=== PATIENT | male | born 1970 | race Caucasian/White ===

== ENCOUNTER 2019-04-24 11:47 | Emergency (ER) | payer OTHER, SELFPAY ==
[2019-04-24 12:02] VITALS: BP 136/82; PULSE 92; RESP 16; TEMP 37.3; O2SAT 94
--- NOTE | 2019-04-24 12:21 | DI.RAD.S_ITS ---
PROCEDURE: XR FOOT LT MIN 3V INDICATIONS: foot pain TECHNIQUE: 3 views of the foot were acquired. COMPARISON: SNO Outside Film, RG, FOOT COMP MIN 3VW (LT), 09/29/2018, 16:07. FINDINGS: Bones: No fractures or dislocations. No suspicious bony lesions. Mild degenerative changes involving the 1st metatarsophalangeal joint are noted without hallux valgus. Os peroneum and os tibiale externum is present. There is a plantar calcaneal spur. Soft tissues: No tibiotalar joint effusion. Achilles tendon appears normal. IMPRESSION: Mild degenerative changes of the left foot. No fractures. Dictated by: Jay Ríos M.D. on 04/24/2019 at 11:41 Approved by: Jay Ríos M.D. on 04/24/2019 at 11:43
--- NOTE | 2019-04-24 12:41 | ED_ITS ---
HPI - Extremity Injury (Lower) <AALIYAH Pittman - Last Filed: 04/24/19 14:42> General Chief Complaint: Extremity Injury, Lower Stated Complaint: Can't walk on left foot Time Seen by Provider: 04/24/19 12:06 Source: patient and family Mode of arrival: Ambulatory Limitations: no limitations History of Present Illness HPI Narrative: The patient is a 48-year-old male nonsmoker presents with his daughter for chief complaint of left foot pain. He states this started hurting yesterday in the arch of his foot. He states he walks around a lot. He states he has had something similar, was placed in foot beds by a plug making operator and eventually got better. He has not taken anything for the pain. He states he is on pain medication for another injury. He states that his foot pain is worse in the morning. He denies any fevers nausea vomiting or diarrhea. Denies any known injuries to the foot. Related Data Previous Rx's Medication Instructions Recorded ketorolac 10 mg PO TID PRN #14 tab 04/24/19 Allergies Allergy/AdvReac Type Severity Reaction Status Date / Time No Known Drug Allergies Allergy Verified 04/24/19 13:21 Review of Systems <LINDA Pittman - Last Filed: 04/24/19 14:42> Review of Systems Narrative: GENERAL: Denies chills, fatigue, malaise, fever, sweats. HEENT: Denies sinus pain, ear pain, sore throat, difficulty swallowing, dizziness. RESPIRATORY: Denies dyspnea, cough, wheezing, hemoptysis, sputum. CARDIOVASCULAR: Denies chest pain, palpitations, orthopnea, edema, GASTROINTESTINAL: Denies nausea, vomiting, abdominal pain, diarrhea, constipation, melena. : Denies dysuria, frequency, incontinence, hematuria, urinary retention. MUSCULOSKELETAL: See HPI SKIN: Denies rash, skin lesions, or other NEUROLOGIC: Denies weakness, headache, numbness, change in speech, confusion, seizures, incoordination. PSYCHIATRIC: No concerning psychosocial issues. 12 point review of systems is negative except for those stated above Patient History <AALIYAH Pittman - Last Filed: 04/24/19 14:42> Substance Use Type: does not use Exam <LINDA Pittman - Last Filed: 04/24/19 14:42> Narrative Exam Narrative: GENERAL: This is a well-nourished, well-developed patient, in no acute distress HEAD: Atraumatic. Normocephalic. No temporal or scalp tenderness. EYES: Pupils equal round and reactive. Extraocular motions intact. No scleral i cterus. No injection or drainage. ENT: Nose without bleeding, purulent drainage or septal hematoma. Throat without erythema, tonsillar hypertrophy or exudate. Uvula midline. Airway patent. NECK: Trachea midline. No JVD or lymphadenopathy. Supple, nontender, no meningeal signs. CARDIOVASCULAR: Regular rate and rhythm without murmurs, gallops, or rubs. RESPIRATORY: No cough. No increased respiratory effort. No accessory muscle use. EXTREMITIES: Pain to palpation left foot of arch, CT positive pedal pulses left foot. Capillary refill less than 2 seconds all toes left foot. BACK: Nontender without deformity or crepitance. No flank tenderness. NEURO: AOx3. SKIN: No rash or erythema or ecchymosis on visible skin Initial Vital Signs Initial Vital Signs: Vital Signs Temperature 99.1 F 04/24/19 12:02 Pulse Rate 92 H 04/24/19 12:02 Respiratory Rate 16 04/24/19 12:02 Blood Pressure 136/82 04/24/19 12:02 Pulse Oximetry 94 04/24/19 12:02 <Lyndsey Valentin DO - Last Filed: 04/24/19 15:42> Initial Vital Signs Initial Vital Signs: Vital Signs Temperature 99.1 F 04/24/19 12:02 Pulse Rate 92 H 04/24/19 12:02 Respiratory Rate 16 04/24/19 12:02 Blood Pressure 136/82 04/24/19 12:02 Pulse Oximetry 94 04/24/19 12:02 Course <POLA Pittman-BC - Last Filed: 04/24/19 14:42> Orders Ordered: ED Orders 04/24/19 12:21 XR foot LT min 3V Stat Discontinued Medications Ketorolac Tromethamine (Toradol) 60 mg IM NOW ONE Stop: 04/24/19 12:22 Last Admin: 04/24/19 13:20 Dose: 60 mg Documented by: NEGIN Vital Signs Vital signs: Vital Signs - 8 hr 04/24/19 12:02 04/24/19 13:58 Temperature 99.1 F Pulse Rate 92 H 80 Respiratory Rate 16 16 Blood Pressure 136/82 Blood Pressure [Left Arm] 121/75 Pulse Oximetry 94 94 <Lyndsey Valentin DO - Last Filed: 04/24/19 15:42> Orders Ordered: ED Orders 04/24/19 12:21 XR foot LT min 3V Stat Discontinued Medications Ketorolac Tromethamine (Toradol) 60 mg IM NOW ONE Stop: 04/24/19 12:22 Last Admin: 04/24/19 13:20 Dose: 60 mg Documented by: CHAITANYASENJose David Vital Signs Vital signs: Vital Signs - 8 hr 04/24/19 12:02 04/24/19 13:58 Temperature 99.1 F Pulse Rate 92 H 80 Respiratory Rate 16 16 Blood Pressure 136/82 Blood Pressure [Left Arm] 121/75 Pulse Oximetry 94 94 MDM - Extremity Injury (Lower) <AALIYAH Pittman - Last Filed: 04/24/19 14:42> Imaging Data Foot x-ray: Radiologist's impression: [place] [address] XRay Report Signed Patient: Shay [facility]#: [id number] : 1970Acct:[id number] Age/Sex: 48 / MDate of Service: 04/24/19 Loc: ED Accession Number: [id number] Procedure: XR foot LT min 3V Ordering Provider: Lyndsey Anglin PROCEDURE: XR FOOT LT MIN 3V INDICATIONS: foot pain TECHNIQUE: 3 views of the foot were acquired. COMPARISON: SNO Outside Film, RG, FOOT COMP MIN 3VW (LT), 09/29/2018, 16:07. FINDINGS: Bones: No fractures or dislocations. No suspicious bony lesions. Mild degenerative changes involving the 1st metatarsophalangeal joint are noted without hallux valgus. Os peroneum and os tibiale externum is present. There is a plantar calcaneal spur. Soft tissues: No tibiotalar joint effusion. Achilles tendon appears normal. IMPRESSION: Mild degenerative changes of the left foot. No fractures. Dictated by: Jay Ríos M.D. on 04/24/2019 at 11:41 Approved by: Jay Ríos M.D. on 04/24/2019 at 11:43 MDM Narrative Medical decision making narrative: The patient is a 48-year-old male who presents with 2 days of foot pain. His exam correlates with plantar fasciitis, but patient and family were concerned about stress fracture so I did obtain an x-ray. This came back negative. The patient has no erythema or signs of infection or gout on his exam. He did not take anything for pain today, so he did receive a dose of Toradol in the emergency department. I discussed at length the importance of ice, gentle stretching etc for plantar fasciitis. He responded well in the emergency department to Toradol, so I gave him a prescription their obstruction instructions to not combine it with any Aleve Motrin etc. Encourage PCP follow-up. Discussed at length return precautions popped care. Patient has no questions or concerns upon discharge and states understanding of return precautions and follow-up care. Discharge Plan Departure Patient Disposition: Home Clinical Impression: Plantar fasciitis of left foot Acute foot pain Qualifiers: Laterality: left Qualified Code(s): M79.672 - Pain in left foot Discharge Date/Time: 04/24/19 14:04 Instructions: DI for Plantar Fasciitis, DI for Foot Pain Activity Restrictions/Additional Instructions: Your exam correlates with plantar fasciitis. Please follow up with primary care provider. As I discussed, your x-ray shows no acute fracture. This does not rule out a soft tissue injury such as a ligament or tendon injury. It is important that you follow up with primary care provider, especially if worsening or no improvement. There can be fractures that did not show up on initial x-ray. I have given you a prescription of Toradol. This is an NSAID. Do not combine it with other NSAIDs such as Aleve or ibuprofen. I suggest taking it with some food, as it can irritate your stomach. I sent the prescription of Toradol to [facility] in [place]. If you have any acute concerns such as chest pain, shortness of breath etc ple ase feel free to come back to emergency department Prescriptions: New ketorolac 10 mg tablet 10 mg PO TID PRN (Reason: pain) Qty: 14 RF: 0 Referrals: Wallace Warner [Primary Care Provider] -
[2019-04-24] MEDS: KETOROLAC 60 MG/2 ML VIAL IM (13:20)
--- NOTE | 2019-04-24 13:53 | PC.NURSE ---
understanding instructions. states, has incentive spirometer at home.
[2019-04-24 13:58] VITALS: BP 121/75; PULSE 80; RESP 16; O2SAT 94
== END 2019-04-24 14:04 | disposition home or self-care (01) ==
PROVIDERS: Emergency Provider Nurse Practitioner Family; PCP Family Medicine
DX: M72.2 Plantar fascial fibromatosis (principal); M79.672 Pain in left foot
CPT/HCPCS: 73630; 96372; 99282; 99283; J1885

== ENCOUNTER 2022-12-22 20:14 | Emergency (ER) | payer OTHER, SELFPAY ==
[2022-12-22] VITALS (24 sets, daily range): BP systolic 154–227; BP diastolic 91–126; PULSE 65–82; RESP 18; TEMP 36.2; O2SAT 95–99; BMI 31.1
--- NOTE | 2022-12-22 20:34 | DI.RAD.S_ITS ---
PROCEDURE: XR CHEST 1V INDICATIONS: chest pain TECHNIQUE: One view of the chest was acquired. COMPARISON: None. FINDINGS: Surgical changes and devices: None. Lungs and pleura: There are low lung volumes. Lungs are clear. No pleural effusions or pneumothorax. Mediastinum: Mediastinal contours appear normal. Heart size is normal. Bones and chest wall: No suspicious bony lesions. Overlying soft tissues appear unremarkable. IMPRESSION: 1. No acute cardiopulmonary disease. Dictated by: Chava Molina M.D. on 12/22/2022 at 20:50 Approved by: Chava Molina M.D. on 12/22/2022 at 20:50
--- NOTE | 2022-12-22 20:34 | DI.CT.S_ITS ---
PROCEDURE: CT HEAD/BRAIN WO CON INDICATIONS: atypical headache TECHNIQUE: Noncontrast 4.5 mm thick angled axial sections acquired from the foramen magnum to the vertex, with coronal and sagittal reformats. For radiation dose reduction, the following was used: automated exposure control, adjustment of mA and/or kV according to patient size. COMPARISON: None. FINDINGS: Image quality: Excellent. CSF spaces: Basal cisterns are patent. No extra-axial fluid collections. Ventricles are normal in size and shape. Brain: No intracranial hemorrhage, mass, or mass effect. Lebron-white matter interface appears preserved. Skull and face: Calvarium and visualized facial bones are intact, without suspicious lesions. Sinuses: Visualized sinuses and mastoids are clear. IMPRESSION: 1. No acute intracranial abnormality. Dictated by: Chava Molina M.D. on 12/22/2022 at 20:49 Approved by: Chava Molina M.D. on 12/22/2022 at 20:49
[2022-12-22] MEDS: KETOROLAC 30 MG/ML VIAL 15 MG IV (20:55)
[2022-12-22] MEDS: diphenhydrAMINE 50 MG/ML VIAL 25 MG IV (20:55)
[2022-12-22] MEDS: METOCLOPRAMIDE 10 MG/2 ML INJ IV (20:55)
[2022-12-22] MEDS: SODIUM CHLORIDE 0.9% 1,000 ML 1000 ML IV (20:56)
[2022-12-22 21:05] LABS: Add Manual Diff / Slide Review NO; Basophils Absolute Auto 0 /uL (0-100); Basophils Percent Auto 0.3 % (0-2); Eosinophils Absolute Auto 300 /uL (0-450); Eosinophils Percent Auto 2.9 % (2-4); Hematocrit 44.9 % (41-53); Hemoglobin 15.6 g/dL (13.5-17.5); Lymphocytes Absolute Auto 1700 /uL (1100-4500); Lymphocytes Percent Auto 16.5 % (25-40); Mean Corpuscular HGB Conc 34.6 % (30-36); Mean Corpuscular Volume 86.7 fL (80-100); Monocytes Absolute Auto 600 /uL (0-900); Monocytes Percent Auto 5.8 % (3-14); Neutrophils Absolute Auto 7600 /uL (1500-7000); Neutrophils Percent Auto 74.5 % (50-75); Platelet Count 229 X10^3/uL (150-400); Red Blood Cell Count 5.19 X10^6/uL (4.5-5.9); Red Cell Distribution Width 12.7 % (11.6-14.8); White Blood Cell Count 10.2 X10^3/uL (4.5-11.0)
[2022-12-22 21:16] LABS: Alanine Aminotransferase 33 IU/L (<50); Albumin 4.6 g/dL (3.5-5.0); Albumin Globulin Ratio 1.4 (1.0-2.8); Alkaline Phosphatase 67 U/L (38-126); Aspartate Aminotransferase 27 IU/L (17-59); BUN Creatinine Ratio 19.1 (6-22); Bilirubin Total 0.5 mg/dL (0.2-1.3); Blood Urea Nitrogen 18 mg/dL (9-20); Calcium 9.4 mg/dL (8.4-10.2); Carbon Dioxide 28 mmol/L (22-32); Chloride 99 mmol/L (98-107); Creatine Kinase 89 U/L (55-170); Estimated Glomerular Filt Rate > 60 mL/min (>60); Globulin 3.3 g/dL (1.7-4.1); Glucose 107 mg/dL (70-100); HEMOLYSIS < 15 (0-50); Lipase 63 U/L (23-300); Potassium 3.9 mmol/L (3.4-5.1); Sodium 135 mmol/L (137-145); Total Protein 7.9 g/dL (6.3-8.2)
[2022-12-22 21:28] LABS: Troponin I < 0.012 ng/mL (0.01-0.034)
[2022-12-22] MEDS: LABETALOL 20 MG/4 ML SYRINGE 10 MG IV (21:57)
--- NOTE | 2022-12-22 22:59 | ED_ITS ---
HPI - Headache General Chief Complaint: Headache Stated Complaint: Migraine, High BP Time Seen by Provider: 12/22/22 20:34 Mode of arrival: Ambulatory History of Present Illness HPI Narrative: Patient is a 52-year-old male history of Prinzmetal angina ongoing headaches. He reports that he has had headaches for at least the last 10 weeks he is monitored by a neurologist at [facility] he was started on verapamil 120 mg for the headaches. Today at 11:00 a.m. he started having the worsening headache. Typically has headaches normally on the left side this wrapped around to both sides and then all over his head. He was unable to lay down because the skin was so sensitive. No fever chills or neck pain. No numbness tingling weakness. He took his verapamil this morning as he was supposed to he tried Tylenol ibuprofen drank coffee no relief. Mild nausea no significant vomiting. No other symptoms. He is also noticed as blood pressure is quite elevated. Denies any chest pain or other symptoms. Related Data Previous Rx's Medication Instructions Recorded ketorolac 10 mg tablet 10 mg PO TID PRN pain #14 tabs 04/24/19 ondansetron 4 mg disintegrating 4 mg PO Q8H PRN nausea and 12/23/22 tablet vomiting #10 tabs Allergies Allergy/AdvReac Type Severity Reaction Status Date / Time No Known Drug Allergies Allergy Verified 12/22/22 20:21 Review of Systems Review of Systems ROS Unobtainable: All systems reviewed & are unremarkable except as noted in HPI and below Patient History Social History Smoking Status: Never smoker Smoking Status: Never smoker alcohol intake frequency: holidays/special occasions only Substance Use Type: does not use Exam Initial Vital Signs Initial Vital Signs: Vital Signs Temperature 97.2 F L 12/22/22 20:21 Pulse Rate 65 12/22/22 20:21 Respiratory Rate 18 12/22/22 20:21 Blood Pressure 187/112 H 12/22/22 20:21 Pulse Oximetry 98 12/22/22 20:21 Oxygen Delivery Method Room Air 12/22/22 20:21 GENERAL: Alert 52-year-old male and in no acute distress. HEENT: Head atraumatic,EOMI, pupils reactive, face symmetric, moist mucous membranes CARDIOVASCULAR: Regular rate and rhythm without murmurs, rubs or gallops. RESPIRATORY: Breath sounds equal bilaterally, no wheezes rales or rhonchi. ABDOMEN: Soft, nontender. Normoactive bowel sounds all 4 quadrants. No guardi ng or rebound. EXTREMITIES: Normal range of motion, no clubbing or edema. Neurovascularly intact NEUROLOGICAL: Alert and oriented x4.Normal gait and speech. Cranial nerves II through XII grossly intact. SKIN: Warm, dry, no laceration, no petechiae, no rashes or lesions. Scores NIH Stroke Scale Level of Conciousness: Alert, keenly responsive Ask month/age: Answers both questions correctly. Open/close eyes, close hand: Performs both tasks correctly Best gaze horizontal: Normal Visual gordillo: No visual loss Facial palsy: Normal symetrical movement Left arm drift: No drift for full 10 sec Right arm drift: No drift for full 10 sec Left leg drift: No drift for full 5 sec Right leg drift: No drift for full 5 sec Limb ataxia: Absent Sensory on face/arms/legs: Normal, no sensory loss Best language: No aphasia, normal Dysarthria: Normal Extinction or inattention: No abnormality Total NIH Stroke scale score: 0 Course Orders Ordered: ED Orders 12/22/22 20:34 CT head/brain wo con Stat XR chest 1V Stat EKG-12 Lead Stat 12/22/22 20:51 Complete Blood Count AUTO DIFF Stat Comprehensive Metabolic Panel Stat Lipase Stat Troponin & CK Cardiac Panel Stat Discontinued Medications Diphenhydramine HCl (Diphenhydramine 50 Mg/Ml Vial) 25 mg IV NOW ONE Stop: 12/22/22 20:35 Last Admin: 12/22/22 20:55 Dose: 25 mg Documented By: BENITEZ Sodium Chloride (Normal Saline 0.9%) 1,000 mls @ 1,000 mls/hr IV CONT [place] Last Infusion: 12/22/22 21:52 Dose: 0 mls/hr Documented By: Admin: 12/22/22 20:56 Dose: 1,000 mls/hr Documented By: BENITEZ Ketorolac Tromethamine (Ketorolac 30 Mg/Ml Vial) 15 mg IV NOW ONE Stop: 12/22/22 20:35 Last Admin: 12/22/22 20:55 Dose: 15 mg Documented By: BENITEZ Labetalol HCl (Labetalol 20 Mg/4 Ml Syringe) 10 mg IV NOW ONE Stop: 12/22/22 21:53 Last Admin: 12/22/22 21:57 Dose: 10 mg Documented By: BENITEZ Metoclopramide HCl (Metoclopramide 10 Mg/2 Ml Inj) 10 mg IV NOW ONE Stop: 12/22/22 20:35 Last Admin: 12/22/22 20:55 Dose: 10 mg Documented By: BS Morphine Sulfate (Morphine 4 Mg/Ml Inj) 4 mg IV NOW ONE Stop: 12/22/22 23:12 Last Admin: 12/22/22 23:30 Dose: 4 mg Documented By: BS Vital Signs Vital signs: Vital Signs - 8 hr 12/22/22 21:06 12/22/22 21:06 12/22/22 21:07 Pulse Rate 71 70 Blood Pressure 194/110 H Pulse Oximetry 98 97 12/22/22 21:07 12/22/22 21:15 12/22/22 21:15 Pulse Rate 78 Blood Pressure 192/104 H 195/109 H Pulse Oximetry 96 12/22/22 21:30 12/22/22 21:30 12/22/22 21:39 Pulse Rate 82 80 Blood Pressure 190/106 H Pulse Oximetry 97 97 12/22/22 21:39 12/22/22 21:43 12/22/22 21:43 Pulse Rate 82 Blood Pressure 175/98 H 193/103 H Pulse Oximetry 97 12/22/22 21:45 12/22/22 21:45 12/22/22 21:57 Pulse Rate 81 80 Blood Pressure 181/100 H 181/100 H Pulse Oximetry 98 12/22/22 22:30 12/22/22 22:00 12/22/22 22:00 Pulse Rate 80 81 Blood Pressure 227/126 H 177/95 H Pulse Oximetry 96 12/22/22 22:10 12/22/22 22:10 12/22/22 22:20 Pulse Rate 78 80 Blood Pressure 179/104 H Pulse Oximetry 97 96 12/22/22 22:20 12/22/22 22:29 12/22/22 22:30 Pulse Rate 81 Blood Pressure 177/102 H 227/126 H Pulse Oximetry 97 12/22/22 22:32 12/22/22 22:40 12/22/22 22:40 Pulse Rate 78 70 Blood Pressure 178/103 H Pulse Oximetry 99 95 12/22/22 22:50 12/22/22 22:50 12/22/22 23:00 Pulse Rate 72 Blood Pressure 163/93 H 166/93 H Pulse Oximetry 95 12/22/22 23:00 12/22/22 23:10 12/22/22 23:10 Pulse Rate 74 70 Blood Pressure 189/107 H Pulse Oximetry 95 97 12/22/22 23:20 12/22/22 23:20 12/22/22 23:29 Pulse Rate 71 72 Blood Pressure 167/103 H Pulse Oximetry 97 97 12/22/22 23:29 12/22/22 23:30 12/22/22 23:30 Pulse Rate 69 Blood Pressure 185/111 H 170/107 H Pulse Oximetry 96 12/22/22 23:40 12/22/22 23:40 12/22/22 23:50 Pulse Rate 67 Blood Pressure 158/91 H 154/93 H Pulse Oximetry 95 12/22/22 23:50 12/23/22 00:00 12/23/22 00:00 Pulse Rate 70 67 Blood Pressure 153/92 H Pulse Oximetry 95 95 12/23/22 00:10 12/23/22 00:10 12/23/22 00:20 Pulse Rate 65 71 Blood Pressure 160/96 H Pulse Oximetry 96 96 12/23/22 00:20 12/23/22 00:30 Pulse Rate 68 Blood Pressure 151/95 H Pulse Oximetry 97 MDM - Headache Lab Data 12/22/22 20:51 12/22/22 20:51 Labs: Lab Results 12/22/22 12/22/22 Range/Units 20:51 20:51 WBC 10.2 (4.5-11.0) X10^3/uL RBC 5.19 (4.5-5.9) X10^6/uL Hgb 15.6 (13.5-17.5) g/dL Hct 44.9 (41-53) % MCV 86.7 (80-100) fL MCH 30.0 (26-34) PG MCHC 34.6 (30-36) % RDW 12.7 (11.6-14.8) % Plt Count 229 (150-400) X10^3/uL Neut % (Auto) 74.5 (50-75) % Lymph % (Auto) 16.5 L (25-40) % [place] % (Auto) 5.8 (3-14) % Eos % (Auto) 2.9 (2-4) % Baso % (Auto) 0.3 (0-2) % Neut # (Auto) 7600 H (0002-4175) /uL Lymph # (Auto) 1700 (3056-4540) /uL [place] # (Auto) 600 (0-900) /uL Eos # (Auto) 300 (0-450) /uL Baso # (Auto) 0 (0-100) /uL Sodium 135 L (137-145) mmol/L Potassium 3.9 (3.4-5.1) mmol/L Chloride 99 (98-107) mmol/L Carbon Dioxide 28 (22-32) mmol/L BUN 18 (9-20) mg/dL Creatinine 0.94 (0.66-1.25) mg/dL Estimated GFR > 60 (>60) mL/min BUN/Creatinine Ratio 19.1 (6-22) Glucose 107 H (70-100) mg/dL Calcium 9.4 (8.4-10.2) mg/dL Total Bilirubin 0.5 (0.2-1.3) mg/dL AST 27 (17-59) IU/L ALT 33 (<50) IU/L Alkaline Phosphatase 67 (38-126) U/L Total Creatine Kinase 89 (55-170) U/L Troponin I < 0.012 (0.01-0.034) ng/mL Total Protein 7.9 (6.3-8.2) g/dL Albumin 4.6 (3.5-5.0) g/dL Globulin 3.3 (1.7-4.1) g/dL Albumin/Globulin Ratio 1.4 (1.0-2.8) Lipase 63 (23-300) U/L Imaging Data CT scan - head: Radiologist's Impression: PROCEDURE:? CT HEAD/BRAIN WO CON ? INDICATIONS:? atypical headache ? TECHNIQUE:? Noncontrast 4.5 mm thick angled axial sections acquired from the foramen magnum to the vertex, with coronal and sagittal reformats.? For radiation dose reduction, the following was used:? automated exposure control, adjustment of mA and/or kV according to patient size.? ? COMPARISON:? None. ? FINDINGS:? Image quality:? Excellent.? ? CSF spaces:? Basal cisterns are patent.? No extra-axial fluid collections.? Ventricles are normal in size and shape.? ? Brain:? No intracranial hemorrhage, mass, or mass effect.? Lebron-white matter interface appears preserved.? ? Skull and face:? Calvarium and visualized facial bones are intact, without suspicious lesions.? ? Sinuses:? Visualized sinuses and mastoids are clear.? ? IMPRESSION:? ? 1. No acute intracranial abnormality.? ? ? Dictated by: Chava Molina M.D. on 12/22/2022 at 20:49 ? ? Approved by: Chava Molina M.D. on 12/22/2022 at 20:49 ? Chest x-ray: Radiologist's Impression: PROCEDURE:? XR CHEST 1V ? INDICATIONS:? chest pain ? TECHNIQUE:? One view of the chest was acquired.? ? COMPARISON:? None. ? FINDINGS:? ? Surgical changes and devices:? None.? ? Lungs and pleura:? There are low lung volumes.? Lungs are clear.? No pleural effusions or pneumothorax.? ? Mediastinum:? Mediastinal contours appear normal.? Heart size is normal.? ? Bones and chest wall:? No suspicious bony lesions.? Overlying soft tissues appear unremarkable.? ? IMPRESSION:? ? 1.? No acute cardiopulmonary disease. ? ? ? Dictated by: Chava Molina M.D. on 12/22/2022 at 20:50 ? ? ECG Data Interpretation: Sinus rhythm rate 68 HI interval 152 QRS 82 QTC 442 T-wave inversion noted in lead [address] changes Q-waves noted inferiorly 3 and AVF no priors to compare MDM Narrative Medical decision making narrative: Patient 52-year-old male history headache but got significantly worse today change in headache activity. He has been unable to get this headache under control very sensitive to touch. He is also noted to have quite elevated blood pressure in the ED. He is no sign of end-organ damage. He was given migraine cocktail with very little relief. Blood pressure remained slightly elevate. Given a dose of labetalol which actually did not bring his blood pressure on and finally he is given morphine which seems to have helped. Head CT is negative. He is on verapamil for his migraines which I suspect is for vasospasm. His headache is finally at a manageable level. Encouraged him to check his blood pressure at home follow-up with his primary. He has a neurologist whom he sees for his headaches. At this time no indication for any further workup or admission to hospital. In no focal deficits or signs or symptoms of CVA. NIH stroke scale 0. Discharge Plan Departure Patient Disposition: Home Clinical Impression: Migraine Instructions: DI for Migraine Activity Restrictions/Additional Instructions: *You have been diagnosed with migraine headache *What to do: At this time go home and rest I hope you get some relief. *Continue to take medications as directed Zofran 4 mg every 8 hours if needed for nausea vomiting --> SENT TO [place] *Follow up with your primary care provider in 2-3 days or call [phone] *Return to ER if you should have persistent vomiting worsening headache numbness tingling weakness or any new, worsening or concerning symptoms Prescriptions: New ondansetron 4 mg tablet,disintegrating 4 mg PO Q8H PRN (Reason: nausea and vomiting) Qty: 10 0RF No Action ketorolac 10 mg tablet 10 mg PO TID PRN (Reason: pain) Qty: 14 0RF Referrals: Von Desai DO [Primary Care Provider] - Stand Alone Forms: Patient Portal/API
[2022-12-22] MEDS: MORPHINE 4 MG/ML INJ IV (23:30)
[2022-12-23] VITALS: BP 153/92; PULSE 67; O2SAT 95
[2022-12-23 00:10] VITALS: BP 160/96; PULSE 65; O2SAT 96
[2022-12-23 00:20] VITALS: BP 151/95; PULSE 71; O2SAT 96
[2022-12-23 00:30] VITALS: PULSE 68; O2SAT 97
== END 2022-12-23 00:38 | disposition home or self-care (01) ==
PROVIDERS: Emergency Provider Emergency Medicine; PCP Family Medicine
DX: G43.909 Migraine, unspecified, not intractable, without status migrainosus (principal); R07.9 Chest pain, unspecified; I10 Essential (primary) hypertension
CPT/HCPCS: 36415; 70450; 71045; 80053; 82550; 83690; 84484; 85025; 93005; 93010; 96361; 96374; 96375; 99284; J1200; J1885; J2270; J2765

== ENCOUNTER 2023-05-19 15:46 | Emergency (ER) | payer OTHER, SELFPAY ==
[2023-05-19 15:59] VITALS: BP 161/102; PULSE 79; RESP 16; TEMP 36.2; O2SAT 98; BMI 33.8
--- NOTE | 2023-05-19 16:21 | DI.CT.S_ITS ---
PROCEDURE: CT ANGIO CHEST PE PROTOCOL INDICATIONS: WORSENING DYSPNEA, ON HORMONES TECHNIQUE: After the administration of intravenous contrast, 2 mm thick sections acquired from the pulmonary apices to the posterior costophrenic angles. 3-dimensional maximum intensity projection (MIP) coronal and sagittal reformats were then acquired through the thorax. For radiation dose reduction, the following was used: automated exposure control, adjustment of mA and/or kV according to patient size. COMPARISON: None. FINDINGS: Image quality: Diagnostic. Pulmonary arteries: Pulmonary arteries are normal in size, and demonstrate no intraluminal filling defects to suggest central pulmonary embolism. Lungs and pleura: Lungs are clear. No pleural effusions or pneumothorax. Central and peripheral airways are patent. Mediastinum: Heart size is normal, without pericardial effusion. No mediastinal or hilar adenopathy. Thoracic aorta is normal in caliber and enhancement. Esophagus is normal in caliber, without hiatal hernia. Bones and chest wall: No suspicious bony lesions. Ribs and thoracic spine appear intact throughout. No axillary or supraclavicular adenopathy. No thyroid nodules which require sonographic follow up, per consensus guidelines. Upper Abdomen: Visualized upper abdominal solid organs appear normal in the early arterial phase of enhancement. IMPRESSION: No pulmonary embolus. No acute cardiopulmonary process. Dictated by: Viky Solomon M.D. on 05/19/2023 at 16:51 Approved by: Viky Solomon M.D. on 05/19/2023 at 16:53
--- NOTE | 2023-05-19 16:21 | DI.US.S_ITS ---
PROCEDURE: US PERIPH VENOUS LOW EXTREM BI INDICATIONS: PAIN AND SWELLING TECHNIQUE: Real-time imaging, as well as color and pulse Doppler interrogation, were performed of the deep veins of both legs from the inguinal ligament to the popliteal fossa, with documentation of the visualized calf veins. COMPARISON: None. FINDINGS: Right: The common femoral, femoral, popliteal, and the visualized calf veins are normally compressible, and free of intraluminal thrombus. Color and pulse Doppler demonstrate normal phasic intravascular flow. There is normal augmentation response to distal compression maneuver. Left: The common femoral, femoral, popliteal, and the visualized calf veins are normally compressible, and free of intraluminal thrombus. Color and pulse Doppler demonstrate normal phasic intravascular flow. There is normal augmentation response to distal compression maneuver. IMPRESSION: No findings of deep venous thrombosis in either lower extremity. Dictated by: Pascale Norman M.D. on 05/19/2023 at 17:30 Approved by: Pascale Norman M.D. on 05/19/2023 at 17:32
--- NOTE | 2023-05-19 16:21 | DI.RAD.S_ITS ---
PROCEDURE: XR CHEST 1V INDICATIONS: dyspnea TECHNIQUE: One view of the chest was acquired. COMPARISON: [facility], CR, XR CHEST 1V, 12/22/2022, 20:31. FINDINGS: Surgical changes and devices: None. Lungs and pleura: Lung volumes are low. Lungs are clear. No pleural effusions or pneumothorax. Mediastinum: Mediastinal contours appear normal. Heart size is normal. Bones and chest wall: No suspicious bony lesions. Overlying soft tissues appear unremarkable. IMPRESSION: No acute cardiopulmonary abnormality is seen. Dictated by: Viky Solomon M.D. on 05/19/2023 at 16:51 Approved by: Viky Solomon M.D. on 05/19/2023 at 16:51
[2023-05-19 16:28] VITALS: PULSE 77
[2023-05-19 16:42] LABS: Add Manual Diff / Slide Review NO; Basophils Absolute Auto 100 /uL (0-100); Basophils Percent Auto 0.6 % (0-2); Eosinophils Absolute Auto 200 /uL (0-450); Eosinophils Percent Auto 2.3 % (2-4); Hematocrit 42.7 % (41-53); Lymphocytes Absolute Auto 2300 /uL (1100-4500); Lymphocytes Percent Auto 21.8 % (25-40); Mean Corpuscular Volume 88.3 fL (80-100); Monocytes Absolute Auto 900 /uL (0-900); Monocytes Percent Auto 8.2 % (3-14); Neutrophils Absolute Auto 7100 /uL (1500-7000); Neutrophils Percent Auto 67.1 % (50-75); Platelet Count 252 X10^3/uL (150-400); Red Blood Cell Count 4.83 X10^6/uL (4.5-5.9); Red Cell Distribution Width 12.4 % (11.6-14.8); White Blood Cell Count 10.6 X10^3/uL (4.5-11.0)
--- NOTE | 2023-05-19 16:45 | ED.EXTPRO ---
HPI - Extremity Problem General Chief complaint: Extremity Problem,Nontraumatic Stated complaint: poosible blood clot Time Seen by Provider: 05/19/23 16:13 Source: patient Mode of arrival: Ambulatory History of Present Illness HPI Narrative: 52-year-old male presents for bilateral lower extremity cramping and pain as well as 3 weeks of gradually worsening intermittent shortness of breath. Patient states that 2 months ago he was supposed to receive prednisone injections into his hands for trigger point, however he states that there was a medication error and he was given progesterone injections. Since then he has been followed by his primary care doctor for various reported side effects. He and his recently got home from an extended car ride and when he called his nursing line about his extremity pain he was told to go to the ER for blood clot evaluation. Related Data Previous Rx's Medication Instructions Recorded ketorolac 10 mg tablet 10 mg PO TID PRN pain #14 tabs 04/24/19 ondansetron 4 mg disintegrating 4 mg PO Q8H PRN nausea and 12/23/22 tablet vomiting #10 tabs Allergies Allergy/AdvReac Type Severity Reaction Status Date / Time No Known Drug Allergies Allergy Verified 12/22/22 20:21 Review of Systems Review of Systems Narrative: Negative except as noted above Patient History Social History Smoking Status: Never smoker Smoking Status: Never smoker alcohol intake frequency: holidays/special occasions only Substance Use Type: does not use Exam Initial Vital Signs Initial Vital Signs: Vital Signs Temperature 97.1 F L 05/19/23 15:59 Pulse Rate 79 05/19/23 15:59 Respiratory Rate 16 05/19/23 15:59 Blood Pressure 161/102 H 05/19/23 15:59 Pulse Oximetry 98 05/19/23 15:59 Oxygen Delivery Method Room Air 05/19/23 15:59 Const: Awake, alert, no acute distress, nontoxic appearing Eyes: PERRL, EOMI, conjunctiva normal ENT: Atraumatic, dentition normal, mucous membranes moist Cardiac: regular rate, regular rhythm RESP: unlabored, clear bilaterally, no wheezing GI: Atraumatic, soft, nontender, nondistended, no rebound, no guarding MSK: Atraumatic, full range of motion, pulses equal, bilateral calf tenderness to palpation Skin: Warm, Dry, intact, no rashes Neuro: AO x3, CN II-XII grossly intact, moves all extremities Psych: affect normal, mood normal, not suicidal, not homicidal Course Orders Ordered: ED Orders 05/19/23 16:21 CT angio chest PE protocol Stat Chest [XR chest 1V] Stat US periph venous low extrem bi Stat 05/19/23 16:24 BNP [NT-proBNP (BNP-Adult 18+)] Stat CBC Auto Diff [Complete Blood Count AUTO DIFF] Stat CMP [Comprehensive Metabolic Panel] Stat PT [Prothrombin Time INR] Stat Troponin & CK Cardiac Panel Stat Vital Signs Vital signs: Vital Signs - 8 hr 05/19/23 15:59 05/19/23 16:28 Temperature 97.1 F L Pulse Rate 79 Pulse Rate [Bilateral Dorsalis Pedis] 77 Respiratory Rate 16 Blood Pressure 161/102 H Pulse Oximetry 98 Oxygen Delivery Method Room Air MDM - Extremity (Nontraumatic) Lab Data 05/19/23 16:24 05/19/23 16:24 Labs: Lab Results 05/19/23 Range/Units 16:24 WBC 10.6 (4.5-11.0) X10^3/uL RBC 4.83 (4.5-5.9) X10^6/uL Hgb 15.0 (13.5-17.5) g/dL Hct 42.7 (41-53) % MCV 88.3 (80-100) fL MCH 31.0 (26-34) PG MCHC 35.0 (30-36) % RDW 12.4 (11.6-14.8) % Plt Count 252 (150-400) X10^3/uL Neut % (Auto) 67.1 (50-75) % Lymph % (Auto) 21.8 L (25-40) % [place] % (Auto) 8.2 (3-14) % Eos % (Auto) 2.3 (2-4) % Baso % (Auto) 0.6 (0-2) % Neut # (Auto) 7100 H (8641-3885) /uL Lymph # (Auto) 2300 (7968-8185) /uL [place] # (Auto) 900 (0-900) /uL Eos # (Auto) 200 (0-450) /uL Baso # (Auto) 100 (0-100) /uL PT 11.6 (9.4-12.5) SECONDS INR 1.0 (0.9-1.3) Sodium 135 L (137-145) mmol/L Potassium 3.8 (3.4-5.1) mmol/L Chloride 101 (98-107) mmol/L Carbon Dioxide 23 (22-32) mmol/L BUN 23 H (9-20) mg/dL Creatinine 1.39 H (0.66-1.25) mg/dL Estimated GFR > 60 (>60) mL/min BUN/Creatinine Ratio 16.5 (6-22) Glucose 101 H (70-100) mg/dL Calcium 10.1 (8.4-10.2) mg/dL Total Bilirubin 0.5 (0.2-1.3) mg/dL AST 32 (17-59) IU/L ALT 33 (<50) IU/L Alkaline Phosphatase 56 (38-126) U/L Total Creatine Kinase 100 (55-170) U/L Troponin I < 0.012 (0.01-0.034) ng/mL NT-Pro-B Natriuret Pep 35 (<125) pg/mL Total Protein 8.8 H (6.3-8.2) g/dL Albumin 5.0 (3.5-5.0) g/dL Globulin 3.8 (1.7-4.1) g/dL Albumin/Globulin Ratio 1.3 (1.0-2.8) MDM Narrative Medical decision making narrative: Well-appearing patient with the above complaints. Triage note states unilateral leg pain, however patient endorses that both of his legs are cramping and in pain. Given the reported hormone injection as well as recent long car ride we will order DVT scan and PE scan. Laboratory work is reviewed, unremarkable. CT angio, chest x-ray, bilateral lower extremity ultrasounds are all negative for acute findings or clot burden. Patient and counseled at bedside of all lab and imaging findings. 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 ED return precautions discussed at bedside. Patient expressed understanding of the plan and is in agreement at this time. All questions answered at the time of discharge. Discharge Plan Departure Patient Disposition: Home Clinical Impression: Dyspnea, Bilateral leg pain Instructions: DI for Shortness of Breath, DI for Leg Pain Prescriptions: No Action ketorolac 10 mg tablet 10 mg PO TID PRN (Reason: pain) Qty: 14 0RF ondansetron 4 mg tablet,disintegrating 4 mg PO Q8H PRN (Reason: nausea and vomiting) Qty: 10 0RF Referrals: Von Desai DO [Primary Care Provider] - Stand Alone Forms: Patient Portal/API
[2023-05-19 16:52] LABS: Prothrombin Time 11.6 SECONDS (9.4-12.5)
[2023-05-19 16:57] LABS: Alanine Aminotransferase 33 IU/L (<50); Albumin Globulin Ratio 1.3 (1.0-2.8); Alkaline Phosphatase 56 U/L (38-126); Aspartate Aminotransferase 32 IU/L (17-59); BUN Creatinine Ratio 16.5 (6-22); Bilirubin Total 0.5 mg/dL (0.2-1.3); Blood Urea Nitrogen 23 mg/dL (9-20); Calcium 10.1 mg/dL (8.4-10.2); Carbon Dioxide 23 mmol/L (22-32); Chloride 101 mmol/L (98-107); Creatine Kinase 100 U/L (55-170); Estimated Glomerular Filt Rate > 60 mL/min (>60); Globulin 3.8 g/dL (1.7-4.1); Glucose 101 mg/dL (70-100); HEMOLYSIS 24 (0-50); Potassium 3.8 mmol/L (3.4-5.1); Sodium 135 mmol/L (137-145); Total Protein 8.8 g/dL (6.3-8.2)
[2023-05-19 17:08] LABS: NT-proBNP (BNP-Adult 18+) 35 pg/mL (<125); Troponin I < 0.012 ng/mL (0.01-0.034)
[2023-05-19 17:54] VITALS: BP 152/89; PULSE 79; RESP 16; TEMP 36.6; O2SAT 99
== END 2023-05-19 17:55 | disposition home or self-care (01) ==
PROVIDERS: Emergency Provider Emergency Medicine; PCP Family Medicine
DX: M79.605 Pain in left leg (principal); M79.604 Pain in right leg; R06.09 Other forms of dyspnea
CPT/HCPCS: 36415; 71045; 71275; 80053; 82550; 83880; 84484; 85025; 85610; 93970; 99284; Q9967

== ENCOUNTER 2024-08-13 16:53 | Emergency (ER) | payer OTHER, SELFPAY ==
[2024-08-13 17:15] VITALS: BP 142/88; PULSE 78; RESP 18; TEMP 36.6; O2SAT 97; BMI 30.1
--- NOTE | 2024-08-13 17:19 | DI.RAD.S_ITS ---
PROCEDURE: XR CHEST 2V INDICATIONS: cough TECHNIQUE: 2 views of the chest were acquired. COMPARISON: [facility], CR, XR CHEST 1V, 05/19/2023, 16:25. [facility], CR, XR CHEST 1V, 12/22/2022, 20:31. FINDINGS AND IMPRESSION: On lateral view, mild lower lung opacity is seen, which is not appreciated on frontal view. This could be infectious/inflammatory versus atelectasis. Consider future imaging surveillance to assess for resolution. Evaluation limited by low lung volumes. No pleural effusions. Normal heart size. Degenerative osseous changes. Dictated by: Olivier Valente M.D. on 08/13/2024 at 18:10 Approved by: Olivier Valente M.D. on 08/13/2024 at 18:11
[2024-08-13 23:00] VITALS: O2SAT 98
== END 2024-08-13 23:01 | disposition left against medical advice (07) ==
PROVIDERS: Emergency Provider Emergency Medicine; PCP Family Medicine
DX: R05.9 Cough, unspecified (principal); R06.2 Wheezing
CPT/HCPCS: 71046; 99281

== ENCOUNTER 2025-05-15 09:58 | Emergency (ER) | payer OTHER, SELFPAY ==
[2025-05-15 10:16] VITALS: BP 157/96; PULSE 74; RESP 18; TEMP 36.8; O2SAT 97; BMI 30.8
--- NOTE | 2025-05-15 10:17 | DI.CT.S_ITS ---
PROCEDURE: CT MASTOID TEMPORAL INDICATIONS: right mastoid pain COMPARISON: None. TECHNIQUE: Noncontrast 0.6 mm thick axial sections acquired through each temporal bone separately. Coronal images are reformatted. FINDINGS: RIGHT: External auditory canal: A debris adjacent to the tympanic membrane. Skin thickening along the roof of the EAC. Middle ear: The middle ear structures, including the ossicles and tympanic membrane, appear normal. Minimal fluid or blood debris in the upper middle ear Inner ear: Inner ear is normally formed and appears unremarkable. Facial nerve appears normal throughout is course. Mastoids: Mastoid air cells are clear. LEFT: External auditory canal: Canal has a normal appearance. Middle ear: The middle ear structures, including the ossicles and tympanic membrane, appear normal. No abnormal fluid or soft tissue density. Inner ear: Inner ear is normally formed and appears unremarkable. Facial nerve appears normal throughout its course. Mastoids: Mastoid air cells are clear. MISCELLANEOUS: Visualized surrounding bones appear unremarkable. Visualized intracranial structures, including the cerebellopontine angle cisterns, appear normal. IMPRESSION: Probable otitis externa. Skin thickening along the roof of the EAC with moderate debris adjacent to the tympanic membrane. No osseous erosion. No mastoiditis. Approved by: Sanju Julian M.D. on 05/15/2025 at 10:21
[2025-05-15 10:33] LABS: Add Manual Diff / Slide Review NO; Hematocrit 48.0 % (41-53); Hemoglobin 16.7 g/dL (13.5-17.5); Lymphocytes Absolute Auto 1400 /uL (1100-4500); Mean Corpuscular HGB Conc 34.8 % (30-36); Mean Corpuscular Hemoglobin 30.5 PG (26-34); Mean Corpuscular Volume 87.5 fL (80-100); Platelet Count 228 X10^3/uL (150-400)
--- NOTE | 2025-05-15 10:36 | ED.EAR ---
HPI - Ear Problem General Chief complaint: Ear Stated complaint: Ear infection (6days); worsening w/meds Time Seen by Provider: 05/15/25 10:08 Source: patient Mode of arrival: Ambulatory History of Present Illness HPI Narrative: Patient is a 54-year-old male history of migraines presenting today with ongoing right ear pain. He reports he has was put on amoxicillin and your drops for a ?double ear infection.He says he has lost hearing in the right side of his ear he feels like behind his ear hurts no fever or chills now the left ear hurts. Just generally feels like after 1 week of antibiotics ears not getting any better. Related Data Home Medications ?Medication ?Instructions ?Recorded ?Confirmed aspirin 81 mg tablet,delayed 81 mg PO DAILY 09/11/23 05/15/25 release (Adult Low Dose Aspirin) omeprazole 20 mg tablet,delayed 20 mg PO DAILY 09/11/23 05/15/25 release verapamil 120 mg tablet 120 mg PO BEDTIME 09/11/23 05/15/25 Previous Rx's ?Medication ?Instructions ?Recorded amoxicillin 875 mg-potassium 1 tab PO BID #6 tabs 05/15/25 clavulanate 125 mg tablet ciprofloxacin 0.2 %-hydrocortisone 3 drp EAR-RIGHT BID 7 days #10 mL 05/15/25 1 % ear drops,suspension (Cipro HC) Allergies Allergy/AdvReac Type Severity Reaction Status Date / Time No Known Drug Allergies Allergy Verified 05/15/25 10:16 Patient History Social History Smoking Status: Never smoker Smoking Status: Never smoker alcohol intake frequency: holidays/special occasions only Exam Initial Vital Signs Initial Vital Signs: Vital Signs Temperature 98.2 F 05/15/25 10:16 Pulse Rate 74 05/15/25 10:16 Respiratory Rate 18 05/15/25 10:16 Blood Pressure 157/96 H 05/15/25 10:16 Pulse Oximetry 97 05/15/25 10:16 Oxygen Delivery Method Room Air 05/15/25 10:16 GENERAL: Alert pleasant 54-year-old male and in no acute distress. HEENT: Head atraumatic,EOMI, pupils reactive, face symmetric, moist mucous membranes EARS: Right ear canal is slightly swollen no significant erythema membrane is not visualized also tender over mastoid without significant swelling Left ear tympanic membrane visualized no significant erythema no significant fluid CARDIOVASCULAR: Regular rate and rhythm without murmurs, rubs or gallops. RESPIRATORY: Breath sounds equal bilaterally, no wheezes rales or rhonchi. EXTREMITIES: Normal range of motion, no clubbing or edema. Neurovascularly intact NEUROLOGICAL: Alert and oriented x4.Normal gait and speech. Cranial nerves II through XII grossly intact. SKIN: Warm, dry, no laceration, no petechiae, no rashes or lesions. Course Orders Ordered: ED Orders 05/15/25 10:17 CT mastoid temporal Stat 05/15/25 10:25 CBC Auto Diff [Complete Blood Count AUTO DIFF] Stat CMP [Comprehensive Metabolic Panel] Stat Lactate (Lactic Acid) Stat Vital Signs Vital signs: Vital Signs - 8 hr 05/15/25 10:16 Temperature 98.2 F Pulse Rate 74 Respiratory Rate 18 Blood Pressure 157/96 H Pulse Oximetry 97 Oxygen Delivery Method Room Air Medical Decision Making Lab Data 05/15/25 10:25 05/15/25 10:25 Labs: Lab Results 05/15/25 Range/Units 10:25 WBC 6.5 (4.5-11.0) X10^3/uL RBC 5.49 (4.5-5.9) X10^6/uL Hgb 16.7 (13.5-17.5) g/dL Hct 48.0 (41-53) % MCV 87.5 (80-100) fL MCH 30.5 (26-34) PG MCHC 34.8 (30-36) % RDW 13.3 (11.6-14.8) % Plt Count 228 (150-400) X10^3/uL Neut % (Auto) 67.8 (50-75) % Lymph % (Auto) 21.3 L (25-40) % [place] % (Auto) 7.0 (3-14) % Eos % (Auto) 3.2 (2-4) % Baso % (Auto) 0.7 (0-2) % Neut # (Auto) 4400 (3759-3861) /uL Lymph # (Auto) 1400 (8197-1655) /uL [place] # (Auto) 500 (0-900) /uL Eos # (Auto) 200 (0-450) /uL Baso # (Auto) 0 (0-100) /uL Sodium 137 (137-145) mmol/L Potassium 4.5 (3.4-5.1) mmol/L Chloride 105 (98-107) mmol/L Carbon Dioxide 23 (22-32) mmol/L BUN 22 H (9-20) mg/dL Creatinine 1.00 (0.66-1.25) mg/dL Estimated GFR > 60 (>60) mL/min BUN/Creatinine Ratio 22.0 (6-22) Glucose 103 H (70-99) mg/dL Lactate 1.4 (0.7-2.1) mmol/L Calcium 9.2 (8.4-10.2) mg/dL Total Bilirubin 0.5 (0.2-1.3) mg/dL AST 34 (17-59) IU/L ALT 37 (<50) IU/L Alkaline Phosphatase 56 (38-126) U/L Total Protein 7.7 (6.3-8.2) g/dL Albumin 4.6 (3.5-5.0) g/dL Globulin 3.1 (1.7-4.1) g/dL Albumin/Globulin Ratio 1.5 (1.0-2.8) Imaging Data ct mastoids: Radiologist's Impression: PROCEDURE: CT MASTOID TEMPORAL INDICATIONS: right mastoid pain COMPARISON: None. TECHNIQUE: Noncontrast 0.6 mm thick axial sections acquired through each temporal bone separately. Coronal images are reformatted. FINDINGS: RIGHT: External auditory canal: A debris adjacent to the tympanic membrane. Skin thickening along the roof of the EAC. Middle ear: The middle ear structures, including the ossicles and tympanic membrane, appear normal. Minimal fluid or blood debris in the upper middle ear Inner ear: Inner ear is normally formed and appears unremarkable. Facial nerve appears normal throughout is course. Mastoids: Mastoid air cells are clear. LEFT: External auditory canal: Canal has a normal appearance. Middle ear: The middle ear structures, including the ossicles and tympanic membrane, appear normal. No abnormal fluid or soft tissue density. Inner ear: Inner ear is normally formed and appears unremarkable. Facial nerve appears normal throughout its course. Mastoids: Mastoid air cells are clear. MISCELLANEOUS: Visualized surrounding bones appear unremarkable. Visualized intracranial structures, including the cerebellopontine angle cisterns, appear normal. IMPRESSION: Probable otitis externa. Skin thickening along the roof of the EAC with moderate debris adjacent to the tympanic membrane. No osseous erosion. No mastoiditis. Approved by: Sanju Julian M.D. on 05/15/2025 at 10:21 MDM Narrative Medical decision making narrative: Patient 54-year-old male presenting today with ongoing right ear pain no left ear pain despite ofloxacin otic drops and amoxicillin. Ears irrigated and cleaned out no evidence of erythema or otitis media. He is tender over his mastoid but CT ruled out mastoiditis. Blood work has been reviewed no leukocytosis no electrolyte abnormalities Patient reexamined after ear has been irrigated. It is mildly erythematous. He has not yet finished 7 days of antibiotics we will extend him for a full 10 days of antibiotics and change up his otic drop. He understands and agrees with this plan shared decision making in place Discharge Plan Departure Patient Disposition: Home Clinical Impression: Otitis externa Instructions: How to Instill Ear Drops Activity Restrictions/Additional Instructions: *You have been diagnosed with otitis externa *What to do: At this time looks extend here antibiotics. Your CAT scan and blood work today are overall reassuring *Continue to take medications as directed Amoxicillin 875 mg twice a day for 3 days Cipro otic 3 drops twice a day for 7 days *Follow up with your primary care provider in 2-3 days or call [phone] *Return to ER if you should have increasing pain loss of hearing fever or any new, worsening or concerning symptoms Prescriptions: New amoxicillin-pot clavulanate 875-125 mg tablet 1 tab PO BID Qty: 6 0RF Cipro HC 0.2-1 % drops,suspension 3 drp EAR-RIGHT BID 7 Days Qty: 10 0RF No Action aspirin [Adult Low Dose Aspirin] 81 mg tablet,delayed release (DR/EC) 81 mg PO DAILY omeprazole 20 mg tablet,delayed release (DR/EC) 20 mg PO DAILY verapamil 120 mg tablet 120 mg PO BEDTIME Referrals: Von Desai DO [Primary Care Provider, Family Practice] Stand Alone Forms: Patient Portal/API
[2025-05-15 10:45] LABS: Alanine Aminotransferase 37 IU/L (<50); Albumin 4.6 g/dL (3.5-5.0); Albumin Globulin Ratio 1.5 (1.0-2.8); Alkaline Phosphatase 56 U/L (38-126); Blood Urea Nitrogen 22 mg/dL (9-20); Calcium 9.2 mg/dL (8.4-10.2); Carbon Dioxide 23 mmol/L (22-32); Chloride 105 mmol/L (98-107); Estimated Glomerular Filt Rate > 60 mL/min (>60); Globulin 3.1 g/dL (1.7-4.1); Glucose 103 mg/dL (70-99); HEMOLYSIS 34 (0-50); Potassium 4.5 mmol/L (3.4-5.1); Sodium 137 mmol/L (137-145); Total Protein 7.7 g/dL (6.3-8.2)
[2025-05-15 10:46] LABS: Lactate (Lactic Acid) 1.4 mmol/L (0.7-2.1)
== END 2025-05-15 12:06 | disposition home or self-care (01) ==
PROVIDERS: Emergency Provider Emergency Medicine; PCP Family Medicine
DX: H60.91 Unspecified otitis externa, right ear (principal)
CPT/HCPCS: 36415; 69209; 70480; 80053; 83605; 85025; 99284; Q9967